=== PATIENT | female | born 2000 | race Caucasian/White ===

== ENCOUNTER 2021-09-19 11:57 | Outpatient (CLI) | payer OTHER, SELFPAY ==
[2021-09-19 13:36] LABS: Absolute Lymphocyte Count 1.45 X10^3/uL (0.83-4.51); Absolute Neutrophil Count 8.5 X10^3/uL (2.0-7.7); Basophil# 0.02 X10^3/uL; Basophil% 0.2 % (0-1); Eosinophil# 0.02 X10^3/uL; Eosinophils% 0.2 % (0-5); Hematocrit 37.1 % (37-47); Hemoglobin 12.9 g/dL (12.0-15.0); Lymphocyte # 1.45 X10^3/ul (0.83-4.51); Lymphocyte % 13.2 % (19-41); Mean Corp Hgb Conc 34.8 g/dL (32-36); Mean Corpuscular Hgb 31.8 pg (27.0-32.0); Mean Corpuscular Volume 91.4 fL (81-99); Mean Platelet Vol. 9.9 fl (6.2-12.0); Monocyte# 0.99 X10^3/uL; NRBC Flagged by Analyzer 0 % (0-5); Neutrophil # 8.45 X10^3/uL (2.7-7.7); Neutrophil % 76.9 % (47-70); Platelet Count 208 K/mm3 (150-450); RBC Distribution Width CV 12.2 % (11.6-14.6); RBC Distribution Width SD 40.5 fl (35.1-43.9); Red Blood Count 4.06 M/mm3 (4.2-5.4)
[2021-09-19 14:05] LABS: Glucose Challenge Gest 1H 50g 88 mg/dL (70-140)
[2021-09-19 14:44] LABS: Syphilis Antibodies Non-reactive
== END 2021-09-19 23:59 | disposition home or self-care (01) ==
PROVIDERS: PCP Nurse Practitioner Family; Visit Provider Obstetrics & Gynecology
DX: Z34.01 Encounter for supervision of normal first pregnancy, first trimester (principal)
CPT/HCPCS: 36415; 82950; 85025; 86780; 86850; 86900; 86901

== ENCOUNTER 2021-12-01 07:41 | Inpatient (IN) | payer OTHER, SELFPAY ==
[2021-12-01] VITALS (55 sets, daily range): BP systolic 98–149; BP diastolic 55–92; PULSE 61–120; TEMP 30.3–37.2; O2SAT 94–100; BMI 25.0
[2021-12-01 07:33] LABS: ROM Internal Control Test YES-OK TO RESULT pt. (Internal QC)
[2021-12-01 07:36] LABS: ROM Patient Test POSITIVE (Negative)
--- NOTE | 2021-12-01 07:48 | PCM.HP.OB ---
HPI - General General Date of Admission: 12/01/21 HPI Narrative FOREIGN VIDAL, is a 21 F at 38.4 weeks gestation who presents with leaking of fluid. Patient reports feeling a gush of fluid around 0300 and continues to leak clear fluid. Denies any contractions. Positive movement. has been uncompllicated. Maternal Data Information CHEMA Calculator Estimated Delivery Date Method Current WG Current Estimate 12/11/21 Manual 38w 4d PFSH PFSH Home Medications 1 tablet PO/SL DAILY 12/01/21 [History Last Taken 11/30/21 10:00] Allergy/AdvReac Type Severity Reaction Status Date / Time No Known Allergies Allergy Verified 12/01/21 07:07 Family History Grandmother Diabetes Surgical History S/P wisdom tooth extraction Social History Smoking Status: Never smoker alcohol intake: never substance use type: does not use caffeine: No what type of physical activity do you participate in: none seatbelt use: always do you feel safe at home: Yes additional social history: -Flory History 0 Elective abortions Hx Para Spontaneous abortions Hx # Term Pregnancies Ectopic pregnancies Hx # Pregnancies Multiple births # of living children NST FHR Rate Baby A Baseline: 135 Variability:: Moderate Accelerations:: 15 x 15 Decelerations:: None NST Reactive:: Yes FHR Category:: Category I Uterine Activity:: Irritability ROS Eyes Eyes: Denies blurry vision, change in vision or spots in vision ENT HEENT: Denies dizziness or headache(s) Cardiovascular Cardiovascular: Denies abdominal pain, chest pain or dyspnea Respiratory/Chest Respiratory/Chest: Denies cough, dyspnea, shortness of breath at rest or shortness of breath with exertion Gastrointestinal Gastrointestinal: Denies abdominal pain, diarrhea or vomiting Genitourinary Genitourinary: Denies change in urinary stream, difficulty urinating or dysuria Musculoskeletal Musculoskeletal: Reports none Integumentary Integumentary: Denies rash Neurologic Neurologic: Denies dizziness, headache(s), memory loss or weakness Psychiatric Psychiatric: Reports none Vital Signs Vital Signs Vital Signs: 12/01/21 06:52 12/01/21 06:53 Temperature 97.0 F L Temperature Source Temporal Pulse Rate 79 74 Blood Pressure 127/86 H BP Systolic 127 BP Diastolic 86 Pulse Ox 98 Weight Weight: 145 lb 11.609 oz Body Mass Index (BMI) 25.0 Physical Exam Const alert, oriented x3 and no apparent distress General Appearance: cooperative Orientation / Consciousness: awake Exam Limitations: no limitations HEENT normocephalic Head and Scalp: normal to inspection Eyes General Eye: normal appearance of both eyes Neck full ROM and no lymphadenopathy Lymph Lymphatic: no lymphadenopathy noted Chest inspection of chest normal Resp normal respiratory effort, normal air movement and clear to auscultation bilaterally Effort and Inspection: able to speak in complete sentences and symmetric chest movement Cardio regular rate and regular rhythm GI normal to inspection, nondistended, normoactive bowel sounds Manual OB Exam: presentation cephalic Amniotic Fluid: clear amniotic fluid Back/Spine normal ROM Extremity full ROM and no calf tenderness Skin no rashes or lesions noted General Skin Exam: no breakdown Neuro oriented x3 and CN's II-XII intact bilaterally Psych mental status grossly normal and thought process normal Labs Labs Labs: Blood Type A NEGATIVE Antibody Screen NEGATIVE Hct 37.1 % (37-47) Hgb 12.9 g/dL (12.0-15.0) Pap Smear Negative Syphilis Total Ab Non-reactive Glucose 1 Hr 50 gm 88 mg/dL (70-140) Rubella- immune HB- neg HC- neg HIV- NR RPR- NR GBS negative Assessment & Plan (1) 38 weeks gestation of : (2) Spontaneous rupture of amniotic membranes: (3) Rh negative state in antepartum period: PLAN: ROM plus- positive for SROM CE- 2/80/-2 Admit to labor and delivery Routine labs IA GBS negative Patient desires unmedicated and physiological labor progression at this time Dr. Rodriguez notified and is collaborating physician
[2021-12-01] MEDS: Lactated Ringers 1,000 ML 50 ML IV (08:05)
[2021-12-01 08:37] LABS: Absolute Lymphocyte Count 2.14 X10^3/uL (0.83-4.51); Absolute Neutrophil Count 7.8 X10^3/uL (2.0-7.7); Basophil# 0.03 X10^3/uL; Basophil% 0.3 % (0-1); Eosinophil# 0.04 X10^3/uL; Eosinophils% 0.3 % (0-5); Hematocrit 37.3 % (37-47); Hemoglobin 12.7 g/dL (12.0-15.0); Lymphocyte # 2.14 X10^3/ul (0.83-4.51); Lymphocyte % 18.7 % (19-41); Mean Corpuscular Hgb 30.4 pg (27.0-32.0); Mean Corpuscular Volume 89.2 fL (81-99); Mean Platelet Vol. 11.4 fl (6.2-12.0); Monocyte# 1.41 X10^3/uL; Monocyte% 12.3 % (0-10); NRBC Flagged by Analyzer 0 % (0-5); Neutrophil # 7.76 X10^3/uL (2.7-7.7); Platelet Count 232 K/mm3 (150-450); RBC Distribution Width CV 12.3 % (11.6-14.6); Red Blood Count 4.18 M/mm3 (4.2-5.4); White Blood Count 11.4 K/mm3 (4.4-11.0)
[2021-12-01] MEDS: 0.9% Saline Lock 10 ML Syringe IV (10:19)
[2021-12-01] MEDS: Oxytocin 30 units/NS 500 ml 30 UNITS/500 ML IV.SOLN IV (10:20)
--- NOTE | 2021-12-01 13:30 | PCM.PN.BLA ---
Progress Note Patient seen at bedside. Feeling comfortable. Denies any pain with contractions. Sitting on birthing ball and getting ready to walk hallways with . Still unsure if desires epidural or unmedicated labor and delivery. Physical Exam Const alert and no apparent distress General Appearance: cooperative and comfortable Exam Limitations: no limitations HEENT normocephalic Eyes General Eye: normal appearance of both eyes Neck full ROM General: normal visual inspection Chest Chest: symmetrical chest wall rise Resp normal respiratory effort and normal air movement Effort and Inspection: symmetric chest movement Auscultation: clear to auscultation bilaterally Cardio regular rate and regular rhythm GI normal to inspection, nondistended, normoactive bowel sounds Back/Spine normal ROM Extremity full ROM and no calf tenderness General Extremity: normal exam except as noted Skin no rashes or lesions noted Neuro CN's II-XII intact bilaterally Psych mental status grossly normal Assessment & Plan Assessment/Plan (1) Rh negative state in antepartum period: (2) Spontaneous rupture of amniotic membranes: (3) 38 weeks gestation of : PLAN: Continue present plan of care Pitocin IV and titrate per policy Cat. 1 tracing/ NST reactive Cervical check in 1 hour or sooner if needed
[2021-12-01] MEDS: Lactated Ringers 500 ML 999 ML IV ×2 (15:11→15:52)
[2021-12-01] MEDS: Ondansetron 4 MG/2 ML Vial IV (15:15)
[2021-12-01] MEDS: fentaNYL-bupivacaine (epidural) 100 ML BAG EPIDURAL ×2 (16:25→20:51)
--- NOTE | 2021-12-01 17:03 | PCM.PN.BLA ---
Progress Note Patient seen at bedside. Comfortable with epidural. Physical Exam Const alert and no apparent distress General Appearance: cooperative and comfortable Exam Limitations: no limitations HEENT normocephalic Eyes General Eye: normal appearance of both eyes Neck full ROM General: normal visual inspection Chest Chest: symmetrical chest wall rise Resp normal respiratory effort and normal air movement Effort and Inspection: symmetric chest movement Auscultation: clear to auscultation bilaterally Cardio regular rate and regular rhythm GI normal to inspection, nondistended, normoactive bowel sounds Back/Spine normal ROM Extremity full ROM and no calf tenderness General Extremity: normal exam except as noted Skin no rashes or lesions noted Neuro CN's II-XII intact bilaterally Psych mental status grossly normal Assessment & Plan Assessment/Plan (1) 38 weeks gestation of : (2) Spontaneous rupture of amniotic membranes: (3) Rh negative state in antepartum period: PLAN: CE Cat. 1 tracing/ NST reactive Continue Pitocin IV Anticipate
[2021-12-01] MEDS: Lactated Ringers 1,000 ML 200 ML IV (19:47)
[2021-12-01] MEDS: Oxytocin 30 units/NS 500 ml 30 UNITS/500 ML IV.SOLN 334 UNITS IV (21:42)
--- NOTE | 2021-12-01 22:49 | EX.PCM.OBRPT ---
Assessment & Plan (1) (spontaneous vaginal delivery): (2) Laceration, obstetrical, second degree: (3) Care and examination of lactating mother: Maternal Data Information CHEMA Calculator Estimated Delivery Date Method Current WG Current Estimate 12/11/21 Manual 38w 4d Vaginal Delivery Maternal Presentation Maternal Presentation: Spontaneous Rupture of Membranes Maternal Presentation: Patient presented with SROM for clear fluid. Labor augmented with Pitocin IV. Operative Information Date of Procedure: 12/01/21 Pre-Operative Diagnosis: Term gestation, SROM Post-Operative Diagnosis: Live male Surgery / Procedure Performed: Spontaneous Vaginal Delivery Type of Anesthesia: Epidural Drain: Fox to straight drain Estimated Blood Loss: 400 Time of Delivery: 21:38 Findings Description of Procedure: Patient found to be completely dilated during routine CE. Provided bedside support throughout pushing. head delivered FLORENCE position followed immediately by anterior shoulder and remainder of body. FOB assisted this provider with once body delivered. Vigorous male placed on maternal abdomen and attended to by nursing staff. IV Pitocin started for active management of third stage of labor. Cord clamped and cut by FOB after delay. placed immediately skin to skin with patient. Moderate amount of bleeding noted from vaginal wall. Active bleeding vessel visualized and sutured using figure 8 stitch. Placenta delivered spontaneously and intact. Cord blood obtained from 3 vessel cord. Right labial laceration and second degree perineal laceration repaired in usual fashion using Vicryl 3-0 Rapide. Hemostasis obtained. Fundus firm 2 below U. Apgars 8/9. EBL 400 cc. All sponges and needles accounted for. Patient and infant bonding well at this time. Dr. Rodriguez notified of delivery. Presentation: Vertex Amniotic Membrane Rupture Type: Spontaneous Time of Membrane Rupture: 0300 Amniotic Fluid Description: Clear Placental Delivery Description: Spontaneous Placenta Disposition: [facility] Cord Vessel Description: 3 Vessels Cord Entanglement: None A Gender: Male (1 minute): 8 (5 minute): 9 Delayed Cord Clamping: Yes Post Vaginal Delivery Medications Given After Delivery: IV Pitocin Laceration: Vaginal Extension/lac (right labial laceration) and 2nd degree Complication Complications: None
[2021-12-02] VITALS (13 sets, daily range): BP systolic 106–133; BP diastolic 67–81; PULSE 86–151; RESP 16–18; TEMP 36.7–37.2; O2SAT 96–99
[2021-12-02] MEDS: Acetaminophen 500 MG Tablet 1000 MG PO ×4 (01:21→22:00)
[2021-12-02] MEDS: Benzocaine/Lanolin/Aloe Vera 1 SPRAY EACH TOPICAL (05:56)
[2021-12-02] MEDS: Naproxen 500 MG Tablet PO ×3 (05:57→20:32)
--- NOTE | 2021-12-02 15:55 | PCM.PN.OB ---
Subjective Subjective Patient seen at bedside. Resting comfortably. C/O tailbone and lower back soreness. Ambulating and voiding without difficulty. without difficulty. Lochia minimal. Desires discharge home tomorrow. Objective Data Objective Data Vital Signs: Vital Signs Temp Pulse Resp BP Pulse Ox 98.1 F 86 18 133/79 H 98 12/02/21 15:45 12/02/21 15:45 12/02/21 15:45 12/02/21 15:45 12/02/21 15:45 Oxygen Delivery Method Room Air Weight: 145 lb 11.609 oz Body Mass Index (BMI) 25.0 Intake & Output: Intake and Output for Last 24 Hours 11/30/21 12/01/21 12/02/21 23:59 23:59 23:59 Intake Total 2603.44 / 2603.44 333 / 333 Output Total 400 / 400 1300 / 1300 Balance 2203.44 / 2203.44 -967 / -967 Lab / Micro Data Result Diagrams: 12/01/21 08:05 Labs: Laboratory Results - last 24 hr 12/02/21 05:05: Screen NEGATIVE, Baby's Blood Type A POSITIVE, Baby's MAINE NEGATIVE Micro: Microbiology 12/01/21 08:05 Nasal Secretion SARS-CoV-2 Antigen (Rapid) - Final ROS Eyes Eyes: Denies blurry vision, change in vision or spots in vision ENT HEENT: Denies dizziness or headache(s) Cardiovascular Cardiovascular: Denies abdominal pain, chest pain or dyspnea Respiratory/Chest Respiratory/Chest: Denies cough, dyspnea, shortness of breath at rest or shortness of breath with exertion Gastrointestinal Gastrointestinal: Denies abdominal pain, diarrhea or vomiting Genitourinary Genitourinary: Denies change in urinary stream, difficulty urinating or dysuria Musculoskeletal Musculoskeletal: Reports none Integumentary Integumentary: Denies rash Neurologic Neurologic: Denies dizziness, headache(s), memory loss or weakness Physical Exam Const alert and no apparent distress General Appearance: cooperative and comfortable Exam Limitations: no limitations HEENT normocephalic Eyes General Eye: normal appearance of both eyes Neck full ROM General: normal visual inspection Chest Chest: symmetrical chest wall rise Resp normal respiratory effort and normal air movement Effort and Inspection: symmetric chest movement Auscultation: clear to auscultation bilaterally Cardio regular rate and regular rhythm GI normal to inspection, nondistended, normoactive bowel sounds Back/Spine normal ROM Extremity full ROM and no calf tenderness General Extremity: normal exam except as noted Skin no rashes or lesions noted Neuro CN's II-XII intact bilaterally Psych mental status grossly normal Assessment & Plan (1) Care and examination of lactating mother: (2) Laceration, obstetrical, second degree: (3) (spontaneous vaginal delivery): (4) Rh negative state in antepartum period: PLAN: PPD #1 Routine care support Rhogam work up if needed Anticipate discharge home tomorrow
[2021-12-03 02:20] VITALS: BP 112/78; PULSE 76; RESP 16; TEMP 36.7; O2SAT 99
[2021-12-03] MEDS: Naproxen 500 MG Tablet PO (04:11)
[2021-12-03] MEDS: Acetaminophen 500 MG Tablet 1000 MG PO (08:47)
[2021-12-03 08:48] VITALS: BP 102/72; PULSE 85; RESP 16; TEMP 36.9; O2SAT 98
--- NOTE | 2021-12-03 08:59 | DS.PCM_ITS ---
Providers Date of Admission: 12/01/21 Primary Care Physician: RAJESH Mendosa Reason For Visit: VAG DELIVERY Diagnosis Discharge Diagnosis (1) Care and examination of lactating mother: Status: Acute Code(s): Z39.1 - Encounter for care and examination of lactating mother (2) Laceration, obstetrical, second degree: Status: Acute Code(s): O70.1 - Second degree perineal laceration during delivery (3) (spontaneous vaginal delivery): Status: Acute Code(s): O80 - Encounter for full-term uncomplicated delivery (4) Rh negative state in antepartum period: Status: Acute Code(s): O26.899 - Other specified related conditions, unspecified trimester; Z67.91 - Unspecified blood type, Rh negative Medications at Discharge Home Medications 1 tablet PO/SL DAILY 12/01/21 acetaminophen 1,000 mg PO Q6H PRN PRN #0 tab 12/03/21 naproxen 500 mg PO Q8H PRN PRN #0 tab 12/03/21 Weight / BMI Weight Weight: 145 lb 11.609 oz Body Mass Index (BMI) 25.0 ABG / Lab / Microbiology Data Result Diagrams: 12/01/21 08:05 Microbiology: Microbiology 12/01/21 08:05 Nasal Secretion SARS-CoV-2 Antigen (Rapid) - Final Meaningful Use Info Meaningful Use Diagnoses (Choose all that apply): None applicable Discharge Plan Admission Admit Date/Time: 12/01/21 07:41 Primary Reason for Your Visit: Attending Provider: Carmen Saunders Primary Care Provider: Eli Perkins NP Instructions Patient Instructions: Discharge Orders/Prescriptions Prescriptions: New acetaminophen 500 mg Tablet 1,000 mg PO Q6H PRN PRN (Reason: Pain 1-10 Or Fever) Qty: 0 RF: 0 naproxen 500 mg Tablet 500 mg PO Q8H PRN PRN (Reason: Pain Score 1-3) Qty: 0 RF: 0 Continued 1 tablet PO/SL DAILY RF: 0 Referrals / Follow Up: Carmen Saunders CNM [Certified Nurse [employer]] - Eli Perkins NP, [facility] [Primary Care Provider] - Disposition Disposition (needs filled in before D/C Order can be placed): Home, Self Care
--- NOTE | 2021-12-03 08:59 | PCM.PN.OB ---
Subjective Subjective Doing well per patient and nursing staff. Ambulating and taking PO without difficulty. Voiding and passing flatus. Pain controlled. , services for assistance. Denies headache, visual changes, chest pain, shortness of breath, leg pain or increased bleeding. Lochia normal. Objective Data Objective Data Vital Signs: Vital Signs Temp Pulse Resp BP Pulse Ox 98.1 F 76 16 112/78 99 12/03/21 02:20 12/03/21 02:20 12/03/21 02:20 12/03/21 02:20 12/03/21 02:20 Oxygen Delivery Method Room Air Weight: 145 lb 11.609 oz Body Mass Index (BMI) 25.0 Intake & Output: Intake and Output for Last 24 Hours 12/01/21 12/02/21 12/03/21 23:59 23:59 23:59 Intake Total 2603.44 / 2603.44 333 / 333 Output Total 400 / 400 1300 / 1300 Balance 2203.44 / 2203.44 -967 / -967 Lab / Micro Data Result Diagrams: 12/01/21 08:05 Micro: Microbiology 12/01/21 08:05 Nasal Secretion SARS-CoV-2 Antigen (Rapid) - Final ROS Constitutional Constitutional: Reports systems reviewed and no addt'l complaints, except as documented; Denies headache(s) Eyes Eyes: Denies acute decrease in peripheral vision, blurry vision or change in vision ENT HEENT: Reports systems reviewed and no addt'l complaints, except as documented Cardiovascular Cardiovascular: Denies chest pain or dizziness Respiratory/Chest Respiratory/Chest: Denies cough, dyspnea, dyspnea on exertion, shortness of breath at rest or shortness of breath with exertion Gastrointestinal Gastrointestinal: Denies abdominal pain, diarrhea, nausea or vomiting Genitourinary Genitourinary: Denies abdominal discomfort Musculoskeletal Musculoskeletal: Denies limited range of motion Integumentary Integumentary: Reports systems reviewed and no addt'l complaints, except as documented Neurologic Neurologic: Reports systems reviewed and no addt'l complaints, except as documented Psychiatric Psychiatric: Reports systems reviewed and no addt'l complaints, except as documented Endocrine Endocrinology: Reports systems reviewed and no addt'l complaints, except as documented Hematologic/Lymphatic Hematologic/Lymphatic: Reports systems reviewed and no addt'l complaints, except as documented Allergic/Immunologic Allergic/Immunologic: Reports systems reviewed and no addt'l complaints, except as documented Physical Exam Const alert and oriented x3 General Appearance: cooperative Orientation / Consciousness: awake, oriented to person, oriented to place and oriented to time Exam Limitations: no limitations HEENT normocephalic Head and Scalp: normal to inspection, normocephalic and atraumatic Face and Sinus: normal facial exam Eyes General Eye: normal appearance of both eyes Neck full ROM Chest Chest: symmetrical chest wall rise Resp normal respiratory effort and normal air movement Auscultation: clear to auscultation bilaterally Cardio regular rate, regular rhythm, S1 normal heart sound, S2 normal heart sound, no murmurs, no rub, no gallops and no clicks GI normal to inspection, nondistended, normoactive bowel sounds and non-tender appearance of the vagina normal Bladder / Kidney Exam: no CVA tenderness Back/Spine normal ROM Extremity normal to inspection and full ROM Skin no rashes or lesions noted Neuro oriented x3, CN's II-XII intact bilaterally and moves all extremities Sensorium / Orientation: awake, alert and oriented to person Motor Exam: clonus absent Deep Tendon Reflexes: Rt Patellar (L4): 2+ and Lt Patellar (L4): 2+ Assessment & Plan (1) Care and examination of lactating mother: (2) Laceration, obstetrical, second degree: (3) (spontaneous vaginal delivery): PLAN: 1) Routine PP care 2) Vitals stable 3) education 4) Follow up in 2 weeks and 6 weeks PP 5) D/C home
== END 2021-12-03 10:30 | disposition home or self-care (01) | DRG 807 ==
LOC: WPOUT 07:42 → WP 07:42
PROVIDERS: Admitting Provider Advanced Practice Midwife; PCP Nurse Practitioner Family; Visit Provider Advanced Practice Midwife
DX: O70.1 Second degree perineal laceration during delivery (principal); Z37.0 Single live birth; O26.893 Other specified pregnancy related conditions, third trimester; Z3A.38 38 weeks gestation of pregnancy; Z67.91 Unspecified blood type, Rh negative
CPT/HCPCS: 59025; 59050; 84112; 85025; 85461; 86850; 86900; 86901; 87426; 90384; 99218; J7120; A4216; G0378; J2405; J2790